=== PATIENT | female | born 1985 | race Caucasian/White ===

== ENCOUNTER 2021-11-13 10:09 | Outpatient (REF) | payer MEDICAID, SELFPAY ==
[2021-11-13 10:48] LABS: MANUAL DIFF FLAG NO
[2021-11-13 10:59] LABS: Basophils Percent Auto 0.2 % (0-2); Eosinophils Absolute Auto 0.2 X10*3/uL (0.0-0.4); Eosinophils Percent Auto 1.7 % (0-4); Hemoglobin 13.7 g/dl (12.0-16.0); Imm Gran Abs Auto 0.04 X10*3/uL (0.00-0.03); Imm Gran Pct Auto 0.4 % (0.0-0.4); Lymphocytes Percent Auto 29.4 % (20-40); Mean Corpuscular HGB Conc 33.4 g/dl (31.0-35.0); Mean Corpuscular Hemoglobin 31.4 pg (27.0-33.0); Mean Corpuscular Volume 93.8 fL (80.0-98.0); Mean Platelet Volume 9.5 fL (9.4-12.3); Monocytes Absolute Auto 0.5 X10*3/uL (0.1-1.2); Neutrophils Absolute Auto 6.5 x10*3/uL (2.0-8.3); Neutrophils Percent Auto 63.3 % (45-73); Platelet Count 308 X10*3/uL (160-400); Red Blood Count 4.37 X10*6/uL (4.20-5.50); White Blood Count 10.3 X10*3/uL (4.8-10.8)
[2021-11-13 11:50] LABS: Thyroid Stimulating Hormone 0.72 uIU/mL (0.32-4.0)
[2021-11-13 11:51] LABS: Alanine Aminotransferase 25 U/L (0-31); Albumin Level 4.1 g/dL (3.5-5.0); Alkaline Phosphatase 81 U/L (39-117); Anion Gap 13 (12-20); Aspartate Amino Transferase 18 U/L (5-31); Bilirubin Total 0.2 mg/dL (0.0-1.0); Blood Urea Nitrogen 7 mg/dL (9-16); Calcium 9.2 mg/dL (8.4-10.2); Carbon Dioxide 22 mmol/L (22-29); Chloride 106 mmol/L (96-108); Cholesterol 179 mg/dL; Estimated Glomerular Filt Rate > 60; Glucose Random 107 mg/dL (60-115); HDL Cholesterol 40 mg/dL; LDL Cholesterol Calculated 92 mg/dl; Sodium 137 mmol/L (135-145); Total Protein 7.2 g/dL (6.5-8.0); Triglycerides 239 mg/dL
[2021-11-13 11:59] LABS: Creatinine Urine 265.28 mg/dL; Total Protein Urine Random 20 mg/dL (<12)
== END 2021-11-13 10:10 | disposition home or self-care (01) ==
LOC: HO.LAB 10:09
PROVIDERS: PCP Internal Medicine; Visit Provider Internal Medicine
DX: Z00.01 Encounter for general adult medical examination with abnormal findings (principal); Z11.3 Encounter for screening for infections with a predominantly sexual mode of transmission; G57.12 Meralgia paresthetica, left lower limb; I10 Essential (primary) hypertension; Z72.0 Tobacco use
CPT/HCPCS: 36415; 80053; 80061; 84156; 84443; 85025

== ENCOUNTER 2023-02-05 12:19 | Outpatient (REF) | payer MEDICAID, SELFPAY ==
[2023-02-05 12:41] LABS: MANUAL DIFF FLAG NO
[2023-02-05 12:57] LABS: Basophils Percent Auto 0.3 % (0-2); Eosinophils Absolute Auto 0.3 X10*3/uL (0.0-0.4); Hematocrit 38.1 % (37.0-47.0); Hemoglobin 13.1 g/dl (12.0-16.0); Imm Gran Abs Auto 0.03 X10*3/uL (0.00-0.03); Imm Gran Pct Auto 0.3 % (0.0-0.4); Lymphocytes Absolute Auto 3.4 X10*3/uL (1.2-4.9); Lymphocytes Percent Auto 35.9 % (20-40); Mean Corpuscular HGB Conc 34.4 g/dl (31.0-35.0); Mean Corpuscular Volume 90.3 fL (80.0-98.0); Mean Platelet Volume 9.5 fL (9.4-12.3); Monocytes Absolute Auto 0.6 X10*3/uL (0.1-1.2); Monocytes Percent Auto 6.1 % (2-11); Neutrophils Absolute Auto 5.2 x10*3/uL (2.0-8.3); Neutrophils Percent Auto 54.4 % (45-73); Platelet Count 293 X10*3/uL (160-400); Red Blood Count 4.22 X10*6/uL (4.20-5.50); Red Cell Distribution Width 11.9 % (11.0-16.0); White Blood Count 9.5 X10*3/uL (4.8-10.8)
[2023-02-05 13:39] LABS: Alanine Aminotransferase 27 U/L (0-31); Albumin Level 4.2 g/dL (3.5-5.0); Alkaline Phosphatase 75 U/L (39-117); Anion Gap 12 (12-20); Aspartate Amino Transferase 23 U/L (5-31); Bilirubin Total 0.7 mg/dL (0.0-1.0); Blood Urea Nitrogen 8 mg/dL (9-16); Calcium 9.1 mg/dL (8.4-10.2); Carbon Dioxide 23 mmol/L (22-29); Chloride 106 mmol/L (96-108); Cholesterol 214 mg/dL; Estimated Glomerular Filt Rate > 60; Glucose Random 105 mg/dL (60-115); HDL Cholesterol 55 mg/dL; LDL Cholesterol Calculated 129 mg/dl; Potassium 3.7 mmol/L (3.3-5.1); Sodium 137 mmol/L (135-145); Total Protein 7.9 g/dL (6.5-8.0); Triglycerides 150 mg/dL
[2023-02-05 13:47] LABS: Thyroid Stimulating Hormone 0.47 uIU/mL (0.32-4.0)
[2023-02-05 15:16] LABS: Creatinine Urine 148.64 mg/dL; Protein/Creatinine Ratio, Ur 0.15 (<0.2); Total Protein Urine Random 22 mg/dL (<12)
== END 2023-02-05 12:20 | disposition home or self-care (01) ==
LOC: HO.LAB 12:19
PROVIDERS: PCP Internal Medicine; Visit Provider Internal Medicine
DX: Z00.00 Encounter for general adult medical examination without abnormal findings (principal); E78.2 Mixed hyperlipidemia; R80.8 Other proteinuria; I10 Essential (primary) hypertension
CPT/HCPCS: 36415; 80053; 80061; 84156; 84443; 85025

== ENCOUNTER 2023-11-25 11:24 | Outpatient (REF) | payer MEDICAID, SELFPAY ==
[2023-11-25 11:47] LABS: MANUAL DIFF FLAG NO
[2023-11-25 12:21] LABS: Basophils Percent Auto 0.3 % (0-2); Eosinophils Absolute Auto 0.2 X10*3/uL (0.0-0.4); Eosinophils Percent Auto 3.2 % (0-4); Hemoglobin 9.8 g/dl (12.0-16.0); Imm Gran Abs Auto 0.03 X10*3/uL (0.00-0.03); Imm Gran Pct Auto 0.4 % (0.0-0.4); Lymphocytes Absolute Auto 2.5 X10*3/uL (1.2-4.9); Lymphocytes Percent Auto 35.1 % (20-40); Mean Corpuscular HGB Conc 31.6 g/dl (31.0-35.0); Mean Corpuscular Hemoglobin 27.2 pg (27.0-33.0); Mean Corpuscular Volume 86.1 fL (80.0-98.0); Mean Platelet Volume 9.2 fL (9.4-12.3); Monocytes Absolute Auto 0.5 X10*3/uL (0.1-1.2); Monocytes Percent Auto 6.6 % (2-11); Neutrophils Absolute Auto 3.9 x10*3/uL (2.0-8.3); Neutrophils Percent Auto 54.4 % (45-73); Platelet Count 342 X10*3/uL (160-400); Red Cell Distribution Width 13.2 % (11.0-16.0); White Blood Count 7.2 X10*3/uL (4.8-10.8)
[2023-11-25 12:51] LABS: Alanine Aminotransferase 26 U/L (0-31); Albumin Level 3.9 g/dL (3.5-5.0); Alkaline Phosphatase 67 U/L (39-117); Anion Gap 11 (12-20); Aspartate Amino Transferase 22 U/L (5-31); Bilirubin Total 0.3 mg/dL (0.0-1.0); Blood Urea Nitrogen 9 mg/dL (9-16); Calcium 9.2 mg/dL (8.4-10.2); Carbon Dioxide 23 mmol/L (22-29); Chloride 107 mmol/L (96-108); Estimated Glomerular Filt Rate > 60; Glucose Random 106 mg/dL (60-115); Potassium 3.3 mmol/L (3.3-5.1); Sodium 138 mmol/L (135-145); Total Protein 7.2 g/dL (6.5-8.0)
[2023-11-25 13:10] LABS: Ferritin 12 ng/mL (10-122); Free T4 (Free Thyroxine) 1.09 ng/dL (0.71-1.85); Thyroid Stimulating Hormone 0.41 uIU/mL (0.32-4.0)
[2023-11-27 01:18] LABS: Triiodothyronine T3 Free 3.7 pg/mL (2.3-4.2)
== END 2023-11-25 11:25 | disposition home or self-care (01) ==
LOC: HO.LAB 11:24
PROVIDERS: PCP Internal Medicine; Visit Provider Internal Medicine
DX: Z00.01 Encounter for general adult medical examination with abnormal findings (principal); N92.0 Excessive and frequent menstruation with regular cycle; F32.9 Major depressive disorder, single episode, unspecified; D50.0 Iron deficiency anemia secondary to blood loss (chronic)
CPT/HCPCS: 36415; 80053; 82728; 84439; 84443; 84481; 85025

== ENCOUNTER 2024-01-21 12:01 | Outpatient (REF) | payer MEDICAID, SELFPAY | END 2024-01-21 12:02 | disposition home or self-care (01) | LOC: HO.LNP 12:01 | PROVIDERS: PCP Internal Medicine; Visit Provider Obstetrics & Gynecology | DX: Z32.02 Encounter for pregnancy test, result negative (principal); N93.9 Abnormal uterine and vaginal bleeding, unspecified | CPT/HCPCS: 36415; 81025; 84146; 84443; 84702; 85027; 87491; 87591; 87624; 87625; 88175; 99202 ==

== ENCOUNTER 2024-01-21 12:01 | Outpatient (AMB) | payer MEDICAID, SELFPAY ==
--- NOTE | 2024-01-21 12:01 | MHC.OFFVIS ---
Vital Signs 01/21/24 12:06 Height 5 ft 2 in Weight 180 lb BMI 32.9 BP 116/64 Intake Visit Reasons: New patient Menorrhagia Manager [place] Required: No Information Interpreted: non-clinical & clinical Sonar Subsystem Equipment Operator: Sonar Subsystem Equipment Operator Present (Yaz MARCUS) Accompanied by: Self / Same As Patient Allergies No Known Allergies Allergy (Unverified 01/21/24 12:08) Is last menstrual period known: Yes Last menstrual period: 01/06/24 HPI Comments Details: The patient is presenting c/o irregular bleeding associated with passage of blood clots and abdominal cramping. it started few months ago and is getting worse no other associated symptoms. Last co testing was many years ago [facility] Medical History Anemia Family History Maternal Aunt Ovarian cancer Maternal Grandmother Colon cancer Brother Hyperthyroidism Social History Household Members: Spouse and Children Housing: House Alcohol intake: current Alcohol type: wine and hard liquor Comment: on weekends Patient Tobacco Use Status: Former Tobacco user Tobacco use type: Cigarette e-Cigarette/Vaping Use: Currently Using Frequency of e-Cigarette/Vaping Use: 5 times per day Use of substances other than those prescribed or required for medical reasons: No Current occupational status: unemployed Sexually active: Yes Sexual orientation: Straight/Heterosexual Gender identity: Female Female Reproductive History Menstrual Age of Menarche: 13 Duration of menses: 8-10 days Date of last menstrual period: 01/06/24 Total pregnancies: 3 Full term: 2 Number of Living Children: 2 Ab spontaneous: 1 Review of Systems Const All systems reviewed & are unremarkable except as noted in HPI and below Card Reports as per HPI Resp Reports as per HPI GI Reports as per HPI and Reports no additional complaints Reports as per HPI Physical Exam Vital Signs: Last Vital Signs BP 116/64 01/21/24 12:06 BMI result Body Mass Index 32.9 Const General: cooperative, healthy appearing and comfortable Chest Chest palpation & inspection: normal inspection of the chest and normal palpation of entire chest wall Breast/axilla inspection: normal inspection of the breasts and normal inspection of the axillae Breast/axilla palpation: normal palpation of the breasts, normal palpation of the axillae and no axillary lymphadenopathy Resp Effort & Inspection: normal respiratory effort Auscultation: clear to auscultation bilaterally Percussion: percussion normal Cardio Palpation: normal PMI Rate: regular rate Rhythm: regular rhythm Heart sounds: no murmurs and no rubs Peripheral pulses: Peripheral pulses 2+ throughout GI Inspection: Yes normal to inspection Palpation (GI): Soft to palpation, nontender, no guarding, not rigid and No hepatosplenomegaly present Percussion: Yes normal to percussion Auscultation: normal bowel sounds Rectal Exam - Female: deferred General: Yes bladder normal to palpation External Female Exam: No lesion Speculum Exam - Vagina: normal appearance of the vagina, normal palpation, normal vaginal discharge and not erythematous Speculum Exam - Cervix: normal appearance of the cervix and normal palpation Bimanual exam- vagina & uterus: normal bimanual exam, normal palpation, uterine size normal, bladder normal to palpation, consistency normal and normal palpation Bimanual Exam- Adnexa, other: normal adnexae, no masses and no tenderness Results AMB Test Urine AMB Test Urine Negative Last Edit by Yaz Hoff CMA on 01/21/24 12:17 Assessment & Plan Assessment & Plan (1) Abnormal uterine bleeding (AUB): Code(s): N93.9 - Abnormal uterine and vaginal bleeding, unspecified Category: Medical Plan: Urine test done in the office was negative. Co testing done, GC and chlamydia taken CBC, TSH, prolactin, HCG, and pelvic ultrasound ordered. Discussed with the patient the different causes of abnormal bleeding including thyroid disorders, uterine and ovarian pathology, endometrial hyperplasia, carcinoma and other potential causes. Discussed with the patient the work up including CBC (to r/o anemia), TSH, prolactin, pelvic Ultrasound, endometrial biopsy to r/o endometrial pathology. All questions answered and the patient verbalized understanding. Instructed the patient to schedule an appointment for an endometrial biopsy in 2 weeks. Orders: Orders AMB HCG Urine Test Today Z32.02 - Encounter for test, result negative TSH reflex Free T4 Today N93.9 - Abnormal uterine and vaginal bleeding, unspecified US pelvic and transvaginal Today N93.9 - Abnormal uterine and vaginal bleeding, unspecified Complete Blood Count no Diff Today N93.9 - Abnormal uterine and vaginal bleeding, unspecified HCG Quantitative Today N93.9 - Abnormal uterine and vaginal bleeding, unspecified Prolactin Today N93.9 - Abnormal uterine and vaginal bleeding, unspecified Coding Level of Care Code New Pt Level 3 (00568) Diagnoses Abnormal uterine bleeding (AUB) N93.9
[2024-01-21 12:06] VITALS: BP 116/64; BMI 32.9
== END 2024-01-21 12:28 | disposition home or self-care (01) ==
PROVIDERS: PCP Internal Medicine; Visit Provider Obstetrics & Gynecology
DX: N93.9 Abnormal uterine and vaginal bleeding, unspecified (principal); Z32.02 Encounter for pregnancy test, result negative
CPT/HCPCS: 99203

== ENCOUNTER 2024-01-21 12:33 | Outpatient (REF) | payer MEDICAID, SELFPAY ==
[2024-01-21 13:53] LABS: Hematocrit 32.5 % (37.0-47.0); Hemoglobin 10.1 g/dl (12.0-16.0); Mean Corpuscular HGB Conc 31.1 g/dl (31.0-35.0); Mean Corpuscular Hemoglobin 25.8 pg (27.0-33.0); Mean Corpuscular Volume 82.9 fL (80.0-98.0); Mean Platelet Volume 9.5 fL (9.4-12.3); Platelet Count 384 X10*3/uL (160-400); Red Blood Count 3.92 X10*6/uL (4.20-5.50); White Blood Count 6.9 X10*3/uL (4.8-10.8)
[2024-01-21 14:49] LABS: HCG Quantitative < 2 mIU/mL; TSH reflex Free T4 0.53 uIU/mL (0.32-4.0)
[2024-01-21 17:12] LABS: CT PCR NOT DETECTED (Not Detect.); NG PCR NOT DETECTED (Not Detect.)
[2024-01-22 08:48] LABS: Prolactin 9.8 ng/mL
[2024-01-24 03:08] LABS: HPV 16 RNA NOT DETECTED (NOT DETECTED); HPV mRNA E6/E7 Detected (Not Detected)
== END 2024-01-21 12:34 | disposition home or self-care (01) ==
LOC: HO.LAB 12:33
PROVIDERS: PCP Internal Medicine; Visit Provider Obstetrics & Gynecology
DX: N93.9 Abnormal uterine and vaginal bleeding, unspecified (principal)
CPT/HCPCS: 36415; 84146; 84443; 84702; 85027; 87491; 87591; 87624; 87625; 88175

== ENCOUNTER 2024-01-24 13:16 | Outpatient (REF) | payer MEDICAID, SELFPAY ==
--- NOTE | ~2024-01-24 | US_ITS ---
EXAMINATION: US PELVIS CLINICAL INFORMATION: Abnormal uterine bleeding, last menstrual period 2 weeks ago. COMPARISON: None available. TECHNIQUE: Ultrasound of the pelvis is performed using both transabdominal and transvaginal transducers along with Doppler. Transvaginal imaging is performed due to inadequate visualization transabdominally. FINDINGS: The uterus is anteverted and measures 13.4 x 8.5 x 7.4 cm. 6.8 x 7.0 x 7.2 cm mass within the uterus is somewhat difficult to characterize due to bowel gas and positioning, but likely represents a fibroid. Endometrium is poorly visualized. Imaged segment of endometrium with possible thickness of 8 mm, however, accuracy of endometrial measurements is substantially limited due to the large fibroid. No significant free fluid. Right ovary measures 3.3 x 3.4 x 2.3 cm, volume 13.6 mL. Left ovary measures 2.9 x 2.0 x 1.7 cm, volume 4.3 mL. Visualization of bilateral ovaries limited. US/US pelvic and transvaginal IMPRESSION: 1. 7.2 cm mass within the uterus is somewhat difficult to characterize due to bowel gas and positioning, but likely represents a fibroid. 2. Endometrium is poorly visualized. Imaged segment of endometrium with possible thickness of 8 mm, however, accuracy of endometrial measurements is substantially limited due to the large fibroid. 3. Visualization of bilateral ovaries limited.
== END 2024-01-24 13:17 | disposition home or self-care (01) ==
LOC: HO.US 13:16
PROVIDERS: PCP Internal Medicine; Visit Provider Obstetrics & Gynecology
DX: N93.9 Abnormal uterine and vaginal bleeding, unspecified (principal)
CPT/HCPCS: 76830; 76856

== ENCOUNTER 2025-02-10 18:57 | Emergency (ER) | payer MEDICAID, SELFPAY ==
[2025-02-10 19:10] VITALS: BP 164/91; PULSE 111; RESP 20; TEMP 36.7; O2SAT 100; BMI 32.6
--- NOTE | 2025-02-10 19:10 | ED.GENADULT ---
HPI - General Adult General Chief complaint: Vaginal Bleeding Stated complaint: panic attack, heavy period (anemic) Time Seen by Provider: 02/10/25 22:49 Source: patient Limitations: no limitations History of Present Illness ED Provider: Rebeka Argueta PA-C HPI narrative: 39-year-old female with a known abnormal uterine bleeding, iron deficiency anemia, presents with a heavy vaginal bleeding over the past 3 days. Patient states she has a her menstrual cycle, the bleeding has been very heavy over the past 3 days. Patient is soaking through a pad every hour, passing large clots at times. Patient states that she had a recent transvaginal ultrasound, and now she is pending a uterine biopsy; she has an appointment with Dr. Suarez in February. Related Data Home Medications ?Medication ?Instructions ?Recorded ?Confirmed ferrous sulfate 325 mg (65 mg 325 mg PO DAILY 01/21/24 02/11/25 iron) tablet Previous Rx's ?Medication ?Instructions ?Recorded medroxyprogesterone 10 mg tablet 10 mg PO DAILY #90 tabs 02/11/25 (Provera) Allergies Allergy/AdvReac Type Severity Reaction Status Date / Time No Known Allergies Allergy Verified 02/10/25 19:12 Review of Systems Review of Systems: Yes all other systems are reviewed and are negative Constitutional: Constitutional: Denies fatigue and Denies fever(s) Cardiovascular: Cardiovascular: Denies chest pain and Denies dyspnea Respiratory: Respiratory: Denies cough and Denies dyspnea Gastrointestinal: Gastrointestinal: Denies abdominal pain, Denies nausea and Denies vomiting Genitourinary: Genitourinary: Denies pelvic pain Endocrine: Endocrine: Denies fatigue PMF Past Medical History Attestation statement: The following information was validated with the patient. Medical History Anemia Family History Family History Maternal Aunt Ovarian cancer Maternal Grandmother Colon cancer Brother Hyperthyroidism Social History Social History Household Members: Spouse and Children Housing: House Alcohol intake: current Alcohol type: wine and hard liquor Comment: on weekends Patient Tobacco Use Status: Former Tobacco user Tobacco use type: Cigarette e-Cigarette/Vaping Use: Currently Using Current occupational status: unemployed Sexual orientation: Straight/Heterosexual Gender identity: Female Physical Exam ED Vital Signs: Vital Signs - 24 hr 02/10/25 21:38 02/11/25 01:00 02/11/25 04:18 Temperature 98.6 F 98.5 F 98.4 F Pulse Rate 99 100 86 Respiratory Rate 16 16 16 Blood Pressure 168/93 H 149/85 H 168/99 H Pulse Oximetry 99 98 99 Oxygen Delivery Method Room Air Room Air Room Air 02/11/25 06:21 02/11/25 10:01 02/11/25 10:17 Temperature 98.3 F 98.4 F 98.6 F Pulse Rate 81 99 90 Respiratory Rate 18 16 16 Blood Pressure 156/93 H 155/97 H 165/99 H Pulse Oximetry 98 Oxygen Delivery Method Room Air 02/11/25 11:08 02/11/25 12:22 02/11/25 12:25 Temperature 98.3 F 98.3 F 98.4 F Pulse Rate 89 85 87 Respiratory Rate 16 16 18 Blood Pressure 183/106 H 165/100 H 165/100 H Pulse Oximetry 99 98 Oxygen Delivery Method Room Air Room Air 02/11/25 13:22 Temperature 98.4 F Pulse Rate 87 Respiratory Rate 18 Blood Pressure 165/100 H Pulse Oximetry 98 Oxygen Delivery Method Room Air BMI result Body Mass Index 32.6 Const Other: Alert well-appearing Orientation/consciousness: patient oriented x3 Resp Effort & Inspection: normal respiratory effort Cardio Other: Normal peripheral perfusion Other: Normal external genitalia, dark blood noted in vaginal canal, dark blood oozing from os, 2 small clots noted Skin Other: Warm dry no rash Neuro General: patient oriented x3, gait normal, no focal motor deficits and CN's II-XI intact bilaterally Psych Other: Cooperative Course Course Course Narrative: RME, this is a rapid medical exam performed by Durga Puga please refer to primary provider for complete H&P- 39 year old female presents for evaluation of anxiety. She reports she is on day 3 of a heavy menstrual cycle but feels anxious, nervous, and shortness of breath. She also endorses tunnel vision. Plan for labs, EKG Reevaluation(s) Reevaluation #1: Time: 02:36 Date: 02/11/25 Provider: JUAN Gray Patient in physician observation for medical needs . No acute events reported overnight.? No current issues or complaints. VS stable. Patient is pending repeat labs and [employer] [employer] consult per Dr. Suarez. Repeat labs ordered for 500 am. If the patient develops new onset heavy vaginal bleeding, and/or becomes unstable, we are to reach out to Dr. Suarez ROBEL. Will continue to monitor. Reevaluation #2: DR. Haddad's progress note: 02/11/2025: 11 15. Patient is receiving a 1 unit of RBCs in the ED, had a full evaluation by OBGYN in the ED patient is already prescribed Provera by Dr. Suarez, and scheduled to see him as an outpatient, blood pressure is running 183/106 has been high since patient in the emergency department, patient is getting emotional and anxious because she may have hysterectomy in the future, patient also is following with her PCP for elevated blood pressure. Will give the patient hydroxyzine for anxiety. Keep monitoring blood pressure would be too early to intervene at this stage patient has a right follow-up with her PCP to establish diagnosis of blood pressure. Patient received almost half of the RBCs pack, no allergic reaction, no itching, no rash, no SOB, no CP, no headache. 13;16: Blood pressure now is 165/100 patient is still asymptomatic finished her blood transfusion, will discharge. Consultations Consultation #1: per Dr. Suarez........ He recommends : Provera 10 mg po qd x90 days to be started now Will perform emb in am in the office Keep in ER and Observe till am and repeat h&h in am If lower in am will need transfusion otherwise will see her in the office in am If bleeding is worked overnight please let me know Time: 23:51 Medications Administered Discontinued Medications Generic Name Dose Route Start Last Admin Trade Name Freq PRN Reason Stop Dose Admin Hydroxyzine HCl 25 mg 02/11/25 11:07 02/11/25 11:21 Hydroxyzine Hcl 25 Mg Tablet PO 02/11/25 11:08 25 mg ONCE ONE Administration Magnesium Sulfate 2 gm in 50 mls @ 150 mls/hr 02/10/25 22:49 02/10/25 23:24 Magnesium Sulfate/H2o IV 02/10/25 23:08 Infused ONCE ONE Infusion Magnesium Sulfate 2 gm in 50 mls @ 150 mls/hr 02/10/25 23:22 02/11/25 00:27 Magnesium Sulfate/H2o IV 02/10/25 23:41 Infused ONCE ONE Infusion Medroxyprogesterone Acetate 10 mg 02/11/25 00:14 02/11/25 00:52 Medroxyprogesterone Acetate 5 Mg Tablet PO 02/11/25 00:15 10 mg ONCE ONE Administration Morphine Sulfate 2 mg 02/11/25 08:51 02/11/25 09:49 Morphine Sulfate 2 Mg/Ml Cartridge IVPUSH 02/11/25 08:52 2 mg ONCE ONE Administration Protocol Ondansetron HCl 4 mg 02/11/25 08:51 02/11/25 09:50 Ondansetron Hcl 4 Mg/2 Ml Vial IVPUSH 02/11/25 08:52 4 mg ONCE ONE Administration Medical Decision Making Medical Decision Making MDM Narrative: 39-year-old female with a known abnormal uterine bleeding, iron deficiency anemia, presents with a heavy vaginal bleeding x 3 days. Patient states she has her menstrual cycle, the bleeding has been very heavy over the past 3 days. Patient is soaking through a pad every hour, passing large clots at times. Patient states that she had a recent transvaginal ultrasound, and now she is pending a uterine biopsy; she has an appointment with Dr. Suarez in February. Problem: Known abnormal uterine bleeding, iron deficiency anemia History: Per patient I have considered the following differential diagnoses: Endometrial cancer, fibroids, anemia, dysfunctional uterine bleed, ectopic Plan: Screening labs were obtained from triage, her anemia is stable, I will repeat her H&H. Perform pelvic exam, the patient has a has not had to change a pad in 4-1/2 hours. She just went to the bathroom, she has started to bleed again, she began to pass small clots as well. We will reach out to Dr. Suarez for further guidance. I have independently reviewed the following tests: Labs: No leukocytosis, stable anemia 9.4 and 28.6, repeat H&H 9.3 and 27.7, magnesium subtly low at 1.3, no additional electrolyte abnormalities, not , Transvaginal ultrasound from January 23: US/US pelvic and transvaginal IMPRESSION: 1. 7.2 cm mass within the uterus is somewhat difficult to characterize due to bowel gas and positioning, but likely represents a fibroid. 2. Endometrium is poorly visualized. Imaged segment of endometrium with possible thickness of 8 mm, however, accuracy of endometrial measurements is substantially limited due to the large fibroid. I received sign-out from my colleague JUAN Argueta H&H was repeated, dropped 1 unit, no 8.2. Overnight, patient passed a few blood clots but no active bleed. I discussed the patient with Dr. [facility] from [facility]. Patient other received 10 mg of Provera Patient will need 1 unit of blood Patient will be discharged with a prescription of Provera 10 mg daily 90 tablets patient has been instructed to follow-up with in his office I discussed with the patient the risks versus benefits of a blood transfusion, patient agreeable to proceed, patient has signed a consent. After the transfusion, patient may be discharged home if she tolerates it well. Sign-out given to my colleague Dr. Haddad Lab Data 02/11/25 05:27 02/10/25 19:21 Labs: Lab Results 02/10/25 02/10/25 02/10/25 Range/Units 19:21 19:35 22:58 WBC 11.7 H (4.8-10.8) X10*3/uL RBC 3.37 L (4.20-5.50) X10*6/uL Hgb 9.4 L 9.3 L (12.0-16.0) g/dl Hct 28.6 L 27.7 L (37.0-47.0) % MCV 84.9 (80.0-98.0) fL MCH 27.9 (27.0-33.0) pg MCHC 32.9 (31.0-35.0) g/dl RDW 12.7 (11.0-16.0) % Plt Count 309 (160-400) X10*3/uL MPV 9.0 L (9.4-12.3) fL Immature Gran % (Auto) 0.4 (0.0-0.4) % Neut % (Auto) 63.6 (45-73) % Lymph % (Auto) 28.3 (20-40) % [place] % (Auto) 6.2 (2-11) % Eos % (Auto) 1.2 (0-4) % Baso % (Auto) 0.3 (0-2) % Lymph # (Auto) 3.3 (1.2-4.9) X10*3/uL M[place]enzie # (Auto) 0.7 (0.1-1.2) X10*3/uL Eos # (Auto) 0.1 (0.0-0.4) X10*3/uL Baso # (Auto) 0.0 (0.0-0.2) X10*3/uL Abs Immat Gran (auto) 0.05 H (0.00-0.03) X10*3/uL Absolute Neuts (auto) 7.5 (2.0-8.3) x10*3/uL Absolute Nucleated RBC 0.000 (0.0-0.012) X10*3/uL Nucleated RBC % (auto) 0.0 (0.0-0.2) /100WBC Sodium 138 (135-145) mmol/L Potassium 3.3 (3.3-5.1) mmol/L Chloride 106 (96-108) mmol/L Carbon Dioxide 17 L (22-29) mmol/L Anion Gap 18 (12-20) BUN 9 (9-16) mg/dL Creatinine 0.75 (0.5-1.4) mg/dL Estim Creat Clear Calc 100.0 Estimated GFR > 60 Random Glucose 115 (60-115) mg/dL Calcium 8.2 L D (8.4-10.2) mg/dL Magnesium 1.3 L* (1.6-2.6) mg/dL Total Bilirubin 0.2 (0.0-1.0) mg/dL AST 60 H (5-31) U/L ALT 56 H (0-31) U/L Alkaline Phosphatase 76 (39-117) U/L Total Protein 7.2 (6.5-8.0) g/dL Albumin 4.0 (3.5-5.0) g/dL TSH 0.88 (0.32-4.0) uIU/mL Beta HCG, Quant < 2 mIU/mL Urine Color Yellow Urine Appearance Clear Urine pH 6.0 (5.0-9.0) Ur Specific [place] 1.010 (1.005-1.025) Urine Protein Trace (Neg-Trace) mg/dL Urine Glucose (UA) Negative (Negative) mg/dL Urine Ketones Negative (Negative) mg/dL Urine Blood Large (3+) H (Negative) Urine Nitrite Negative (Negative) Ur Leukocyte Esterase Negative (Negative) Urine RBC >20 H (0-2) /HPF Urine WBC 0-5 (0-5) /HPF Ur Squamous Epith Cells 0-2 (0-2) /HPF Urine Bacteria None Seen (None Seen) Hyaline Casts 0-2 (0-2) /LPF Blood Type Antibody Screen Crossmatch 02/11/25 02/11/25 Range/Units 05:27 08:29 WBC (4.8-10.8) X10*3/uL RBC (4.20-5.50) X10*6/uL Hgb 8.2 L (12.0-16.0) g/dl Hct 24.7 L (37.0-47.0) % MCV (80.0-98.0) fL MCH (27.0-33.0) pg MCHC (31.0-35.0) g/dl RDW (11.0-16.0) % Plt Count (160-400) X10*3/uL MPV (9.4-12.3) fL Immature Gran % (Auto) (0.0-0.4) % Neut % (Auto) (45-73) % Lymph % (Auto) (20-40) % Mckenzie % (Auto) (2-11) % Eos % (Auto) (0-4) % Baso % (Auto) (0-2) % Lymph # (Auto) (1.2-4.9) X10*3/uL [place] # (Auto) (0.1-1.2) X10*3/uL Eos # (Auto) (0.0-0.4) X10*3/uL Baso # (Auto) (0.0-0.2) X10*3/uL Abs Immat Gran (auto) (0.00-0.03) X10*3/uL Absolute Neuts (auto) (2.0-8.3) x10*3/uL Absolute Nucleated RBC (0.0-0.012) X10*3/uL Nucleated RBC % (auto) (0.0-0.2) /100WBC Sodium (135-145) mmol/L Potassium (3.3-5.1) mmol/L Chloride (96-108) mmol/L Carbon Dioxide (22-29) mmol/L Anion Gap (12-20) BUN (9-16) mg/dL Creatinine (0.5-1.4) mg/dL Estim Creat Clear Calc Estimated GFR Random Glucose (60-115) mg/dL Calcium (8.4-10.2) mg/dL Magnesium 2.2 (1.6-2.6) mg/dL Total Bilirubin (0.0-1.0) mg/dL AST (5-31) U/L ALT (0-31) U/L Alkaline Phosphatase (39-117) U/L Total Protein (6.5-8.0) g/dL Albumin (3.5-5.0) g/dL TSH (0.32-4.0) uIU/mL Beta HCG, Quant mIU/mL Urine Color Urine Appearance Urine pH (5.0-9.0) Ur Specific [place] (1.005-1.025) Urine Protein (Neg-Trace) mg/dL Urine Glucose (UA) (Negative) mg/dL Urine Ketones (Negative) mg/dL Urine Blood (Negative) Urine Nitrite (Negative) Ur Leukocyte Esterase (Negative) Urine RBC (0-2) /HPF Urine WBC (0-5) /HPF Ur Squamous Epith Cells (0-2) /HPF Urine Bacteria (None Seen) Hyaline Casts (0-2) /LPF Blood Type O Positive Antibody Screen NEGATIVE Crossmatch See Detail Critical Care Time Critical Care Time Critical Care Time: Yes Total Critical Care Time: 75 Attestation: I have personally provided critical care time. Time includes review of lab data, radiology results, discussion with consultants, and monitoring for potential decompensation. Intervention performed as documented. Discharge Plan Discharge Clinical Impression: Abnormal uterine bleeding (AUB) Patient Disposition: Home, Self-Care Instructions: Abnormal (Dysfunctional) Uterine Bleeding (ED) Additional Instructions: Per Dr. Suarez, you should stay on the Provera daily for the next 3 months. Prescriptions: New medroxyprogesterone [Provera] 10 mg tablet 10 mg PO DAILY Qty: 90 0RF No Action ferrous sulfate 325 mg (65 mg iron) tablet 325 mg PO DAILY Referrals: Elias Suarez MD [Physician, TRANSITIONAL CARE LIAISON] Stand Alone Forms: Work/School Release Interventions: ED Discharge Assessment Last Done: 02/11/25 13:22 Discharge Date/Time: 02/11/25 13:24 Print Language: Yoruba
--- NOTE | 2025-02-10 19:11 | ECG_ITS ---
Test Reason : SOB Blood Pressure : */* mmHG Vent. Rate : 117 BPM Atrial Rate : 117 BPM P-R Int : 166 ms QRS Dur : 84 ms QT Int : 318 ms P-R-T Axes : 40 54 37 degrees QTcB Int : 443 ms Sinus tachycardia Nonspecific ST abnormality Abnormal ECG No previous ECGs available Referred By: Alberto Puga Electronically Signed By: EUSEBIA BLUNT MD
[2025-02-10 19:25] LABS: MANUAL DIFF FLAG NO
[2025-02-10 19:26] LABS: Hematocrit 28.6 % (37.0-47.0); Hemoglobin 9.4 g/dl (12.0-16.0); Imm Gran Abs Auto 0.05 X10*3/uL (0.00-0.03); Imm Gran Pct Auto 0.4 % (0.0-0.4); Lymphocytes Absolute Auto 3.3 X10*3/uL (1.2-4.9); Mean Corpuscular HGB Conc 32.9 g/dl (31.0-35.0); Mean Corpuscular Hemoglobin 27.9 pg (27.0-33.0); Mean Corpuscular Volume 84.9 fL (80.0-98.0); NRBC Abs Auto 0.000 X10*3/uL (0.0-0.012); NRBC Pct Auto 0.0 /100WBC (0.0-0.2); Platelet Count 309 X10*3/uL (160-400); Red Blood Count 3.37 X10*6/uL (4.20-5.50); White Blood Count 11.7 X10*3/uL (4.8-10.8)
[2025-02-10 19:48] LABS: Alanine Aminotransferase 56 U/L (0-31); Albumin Level 4.0 g/dL (3.5-5.0); Alkaline Phosphatase 76 U/L (39-117); Anion Gap 18 (12-20); Aspartate Amino Transferase 60 U/L (5-31); Blood Urea Nitrogen 9 mg/dL (9-16); Calcium 8.2 mg/dL (8.4-10.2); Carbon Dioxide 17 mmol/L (22-29); Chloride 106 mmol/L (96-108); Creatinine Clr Calc Pharmacy 100.0; Estimated Glomerular Filt Rate > 60; Magnesium 1.3 mg/dL (1.6-2.6); Potassium 3.3 mmol/L (3.3-5.1); Sodium 138 mmol/L (135-145); Total Protein 7.2 g/dL (6.5-8.0)
[2025-02-10 19:49] LABS: Appearance Urine Clear; Glucose Urine UA Negative (Negative); PH 6.0 (5.0-9.0); Specific Gravity - Urine 1.010 (1.005-1.025); UMIC TRIGGER UACC YES
--- OUTSIDE RECORDS SUMMARY | 2025-02-10 21:05 | XMS_ITS | Clinical Summary ---
Author Organization [facility] Address [address] [facility] [address] [place] [address] Phone Care Team Providers Care Yard Jacker Name Role Phone Monica Agosto MD Primary Care Provider Social History Tobacco Use Types Packs/Day Years Used Date Smoking Tobacco: Never Assessed Comments Unknown Sex and Gender Information Value Date Recorded Sex Assigned at Not on file Legal Sex Female 3:00 PM EDT Gender Identity Not on file Sexual Orientation Not on file Plan of Treatment Health Maintenance Due Date Last Done Comments Hepatitis B Vaccine (1 of 3 - 19+ 3-dose series) 2005 Influenza Vaccine (#1) 2025 Pneumococcal Vaccine: Peds ( 0 to 5 Years) and At-Risk Patients (6 to 49 Years) Aged Out No longer eligible b ased on patient's age to complete this topic [place] Care Teams Yard Jacker Relationship Specialty Start Date End Date Monica Agosto MD [address] [place] [address] PCP - General Internal Medicine 12/11/21
[2025-02-10 21:38] VITALS: BP 168/93; PULSE 99; RESP 16; TEMP 37; O2SAT 99
--- NOTE | 2025-02-10 22:28 | PC.NURSE ---
pt a&ox4, respirations even and unlabored. pt reports x3 days of vaginal bleeding with large clots, denies any abdominal pain. pt also reports intermittent panic attacks which she has never had before. at this time, pt resting in stretcher, no acute distress noted but pt reports she is having anxiety. pt awaiting ed doc
[2025-02-10] MEDS: Magnesium Sulfate/H2O 2 GM/50 ML PIGGYBACK IV ×2 (22:54→23:26)
[2025-02-10 23:03] LABS: Hematocrit 27.7 % (37.0-47.0); Hemoglobin 9.3 g/dl (12.0-16.0)
--- NOTE | 2025-02-10 23:27 | PC.NURSE ---
pt returned from bathroom at this time, reports one small blood clot at this time, denies any heavy bleeding
[2025-02-11] VITALS (9 sets, daily range): BP systolic 149–183; BP diastolic 85–106; PULSE 81–100; RESP 16–18; TEMP 36.8–37; O2SAT 98–99
--- NOTE | 2025-02-11 00:05 | P.CONOB_ITS ---
PARK MAINTENANCE TECHNICIAN - CN: HPI Data of Consult Consult date: 02/11/25 Primary Care Provider: Monica Agosto MD Consult Narrative Narrative: I was consulted on Kenya Cunningham who is a 39 year old female presenting to the emergency room with history of heavy vaginal bleeding associated specialist with blood clots and pelvic cramping H&H at 19:21 was 9.4/29.6 H&H repeated at 22:58 dropped to 9.3/27.7 HCG less than 2 Last co testing was negative/HPV positive, colpo biopsy scheduled but the patient canceled her follow-up appointment because her insurance was inactive 02/14 Pelvic ultrasound done recently showed the following: The uterus is anteverted and measures 13.4 x 8.5 x 7.4 cm. 6.8 x 7.0 x 7.2 cm mass within the uterus is somewhat difficult to characterize due to bowel gas and positioning, but likely represents a fibroid. Endometrium is poorly visualized. Imaged segment of endometrium with possible thickness of 8 mm, however, accuracy of endometrial measurements is substantially limited due to the large fibroid. No significant free fluid. Right ovary measures 3.3 x 3.4 x 2.3 cm, volume 13.6 mL. Left ovary measures 2.9 x 2.0 x 1.7 cm, volume 4.3 mL. Visualization of bilateral ovaries limited The patient is states that her bleeding is beginning to subside cc:: CC: OB [facility] Past Medical History Medical History Anemia Family History Family History Maternal Aunt Ovarian cancer Maternal Grandmother Colon cancer Brother Hyperthyroidism Social History Social History Household Members: Spouse and Children Housing: House Alcohol intake: current Alcohol type: wine and hard liquor Comment: on weekends Patient Tobacco Use Status: Former Tobacco user Tobacco use type: Cigarette Smoked in Last 30 Days: No e-Cigarette/Vaping Use: Currently Using Use of substances other than those prescribed or required for medical reasons: No Advance Directives: No Advance Directives Information Provided: Yes Patient : No Current occupational status: unemployed Sexual orientation: Straight/Heterosexual Gender identity: Female Meds Allergies Allergy/AdvReac Type Severity Reaction Status Date / Time No Known Allergies Allergy Verified 02/10/25 19:12 Home Medications ?Medication ?Instructions ?Recorded ?Confirmed ?Last Taken ?Type ferrous sulfate 325 mg (65 mg 325 mg PO DAILY 01/21/24 Unknown History iron) tablet PARK MAINTENANCE TECHNICIAN Physical Exam Vitals Vital signs: Temp Pulse Resp BP Pulse Ox O2 Del Method 98.6 F 99 16 168/93 H 99 Room Air 02/10/25 21:38 02/10/25 21:38 02/10/25 21:38 02/10/25 21:38 02/10/25 21:38 02/10/25 21:38 BMI result Body Mass Index 32.6 Female Genitalia (Pelvic) Bladder/Urethra: Normal meatus Vulva: No lesions Vagina: Nontender Cervix: Grossly normal Adnexa/Parametria: Adnexal Tenderness: None, Adnexal Mass: None, Parametrial Tenderness: None and Parametrial Mass: None Additional Comments: No evidence of active vaginal bleeding PARK MAINTENANCE TECHNICIAN - Results Labs 02/11/25 05:27 02/10/25 19:21 Labs: Short CBC 02/10/25 02/10/25 Range/Units 19:21 22:58 WBC 11.7 H (4.8-10.8) X10*3/uL Hgb 9.4 L 9.3 L (12.0-16.0) g/dl Hct 28.6 L 27.7 L (37.0-47.0) % Plt Count 309 (160-400) X10*3/uL BMP 02/10/25 19:21 Sodium 138 Potassium 3.3 Chloride 106 Carbon Dioxide 17 L BUN 9 Creatinine 0.75 Calcium 8.2 L D Liver Function 02/10/25 Range/Units 19:21 Total Bilirubin 0.2 (0.0-1.0) mg/dL AST 60 H (5-31) U/L ALT 56 H (0-31) U/L Alkaline Phosphatase 76 (39-117) U/L Albumin 4.0 (3.5-5.0) g/dL Urine 02/10/25 Range/Units 19:35 Urine Color Yellow Urine Appearance Clear Urine pH 6.0 (5.0-9.0) Ur Specific [place] 1.010 (1.005-1.025) Urine Protein Trace (Neg-Trace) mg/dL Urine Glucose (UA) Negative (Negative) mg/dL Assessment and Plan (1) Abnormal uterine bleeding (AUB): Status: Acute 12:04 Recommended the following to JUAN Gray in the emergency room: Start Provera 10 mg p.o. q.d.x 90 days. Observe overnight in the emergency room Repeat H&H in a.m. if significant lower transfuse with packed RBC otherwise will follow-up in the office in a.m. for EMB 08:00 the patient is doing well feels that bleeding has slowed down repeat H&H at 05:27 dropped to 8.2/24.7 Discussed with the patient the importance of EMB to rule out endometrial pathology include endometrial hyperplasia and/or malignancy, the patient agreed In addition, discussed with the patient the her last ultrasound was done a year ago needs repeat ultrasound on outpatient basis, ordered Last discussed with the patient her last co testing was negative/HPV positive, the indication for repeat co testing and colpo tanvir, the patient verbalized understanding Recommend: EMB done, see procedure note transfuse 1 unit of packed RBC Follow-up in 1 week in the office with repeat CBC Provera 10 mg p.o. q.d.x 90 days Will refer to [facility] minimally invasive baling machine operator hysterectomy Instructions given the patient to call or come back to emergency room in case of recurrence of vaginal bleeding I spent a total of 20 minutes reviewing the chart, communicating to the emergency room provider and documenting in the medical record. (2) Uterine myoma: Status: Acute Since ultrasound was done a year ago will repeat pelvic ultrasound outpatient basis Discussed with the patient the findings on pelvic ultrasound done a year ago & the risk of myosarcoma; in addition reviewed with the patient that malignancy and pre malignancy cannot be ruled out without hysterectomy for pathological evaluation ; furthermore, explained to the patient the limitation of pelvic ultrasound and endometrial biopsy in the setting. Discussed with the patient the typical symptoms that are caused by myomas including but not limited to pelvic pain, pressure symptoms, abnormal uterine bleeding. In addition discussed with the patient options of treatment for myomas including: Serial ultrasounds periodically to follow-up on the size of the myoma while targeting the treatment against fibroids related symptoms ( control pills, Mirena IUD, progesterone treatment, GnRH agonist/antagonist, uterine artery embolization or endometrial ablation) versus surgical treatment including hysterectomy or myomectomy. All pros and cons, risks and benefits of all options were discussed with the patient. The patient understands that delay in surgical treatment in case of myosarcoma can affect her prognosis, after further discussion, the patient decided to proceed with hysterectomy Discussed with the patient the different types of hysterectomies including, vaginal, laparoscopic assisted vaginal, robotic assisted laparoscopic,& abdominal with BSO. All pros, cons, r/b of each approach were discussed the patient including evidence that morbidity is less and recovery is shorter with minimally invasive approaches to hysterectomy. Discussed with the patient the lack of availability of the robot DaVinci robot and/or minimally invasive chemistry instructor specialist at [facility]. Will refer to [facility] minimally invasive baling machine operator surgery. Instructed the patient to call our office back in case a referral appointment is not scheduled, missed or canceled so that we will assist on rescheduling another appointment, the patient verbalized understanding agreed with the plan. (3) Cervical high risk HPV (human papillomavirus) test positive: Status: Acute Also discussed with the patient that her Pap smear was negative/HPV positive year ago, recommendation was to proceed with colposcopy since the patient cancel her follow-up appointment you to inactive insurance recommended schedule an appointment within a week for repeat co testing and colposcopy. All questions answered, the patient verbalized understanding Endometrial Biopsy Details: The patient was counseled regarding the indication and benefits of endometrial sampling to rule out endometrial pathology including not limited to endometrial hyperplasia or endometrial cancer and others; The alternatives (Either do nothing vs. hysteroscopy D&C) & the risks were discussed with the patient including but not limited: pain, uterine perforation, bleeding, infection, possible injury to bladder, bowel, ureter, possible need for blood transfusion with all its possible risks. The patient verbalized understanding all questions answered and signed consent. The patient was placed into the dorsal lithotomy position; a speculum was inserted in the vagina. Using aseptic technique for the procedure, the cervix was cleansed with Betadine. The anterior lip of the cervix was grasped with a single tooth tenaculum. The uterus was sounded to 7 cm with a 4 mm Pipelle was used. Tissues samples were obtained and placed in formalin, in a patient labeled container and sent to the pathology department. At the end of the procedure, there was minimal bleeding noted The patient tolerated the procedure well and was discharged in good condition with the following instructions: Nothing in the vagina until the bleeding stops. No sex until the bleeding stops, to call if any of the following occurs: fever (>100.4), flu-like symptoms, abdominal pain, heavy bleeding, four smelling vaginal discharge. The patient was instructed to schedule a Follow up appointment in 2 weeks to discuss pathology results of the biopsy and treatment options. This note was generated with a voice recognition program. Some errors may have been overlooked during the review of this note. Sometimes these errors may affect the content or meaning of a given sentence. [id number] Biopsy
[2025-02-11 05:33] LABS: Hematocrit 24.7 % (37.0-47.0); Hemoglobin 8.2 g/dl (12.0-16.0)
[2025-02-11 05:47] LABS: Magnesium 2.2 mg/dL (1.6-2.6)
--- NOTE | 2025-02-11 07:56 | PC.NURSE ---
Dr Suarez at bedside to consult on pt
--- NOTE | 2025-02-11 10:05 | PC.NURSE ---
RBC's transfusing per orders at this time; vss
--- NOTE | 2025-02-11 10:27 | PC.NURSE ---
No adverse reaction to RBC transfusion noted at this time
--- NOTE | 2025-02-11 11:05 | PC.NURSE ---
Pt's BP elevated to 180's/100's; pt states her PCP is watching her for HTN, but not currently on meds; HR and temperature WNL; pt tearful and anxious, stating she feels overwhelmed by current OB health issues; MD made aware/at bedside to eval; transfusion not stopped at this time as transfusion reaction not suspected
--- NOTE | 2025-02-11 11:08 | PHA.MEDREC ---
Pharmacy Consult ? Medication Reconciliation Pharmacy has completed the medication reconciliation. Spoke to patient to confirm med list. Per patient, she is supposed to be taking ferrous sulfate 325 mg daily but has not been compliant (she last took it last month).
== END 2025-02-11 13:24 | disposition home or self-care (01) ==
PROVIDERS: Physician Assistant; Physician Assistant Medical; Emergency Provider Emergency Medicine; PCP Internal Medicine
DX: N93.8 Other specified abnormal uterine and vaginal bleeding (principal); D50.9 Iron deficiency anemia, unspecified; I10 Essential (primary) hypertension; F41.9 Anxiety disorder, unspecified; Z80.0 Family history of malignant neoplasm of digestive organs; Z80.8 Family history of malignant neoplasm of other organs or systems
CPT/HCPCS: 36415; 36430; 58100; 80053; 81001; 83735; 84443; 84702; 85014; 85018; 85025; 86850; 86900; 86901; 86923; 88305; 93005; 96365; 96366; 96375; 99285; J2270; J2405; J3475; P9016

== ENCOUNTER → 2025-02-10 19:11 | Outpatient (BNV) | payer MEDICAID, SELFPAY | PROVIDERS: Emergency Provider Emergency Medicine; PCP Internal Medicine; Visit Provider Internal Medicine Cardiovascular Disease | DX: R00.0 Tachycardia, unspecified (principal) | CPT/HCPCS: 93010 ==

== ENCOUNTER → 2025-02-10 21:02 | Outpatient (BNV) | payer MEDICAID, SELFPAY | PROVIDERS: Emergency Provider Emergency Medicine; PCP Internal Medicine; Visit Provider Obstetrics & Gynecology | DX: N93.9 Abnormal uterine and vaginal bleeding, unspecified (principal); D25.9 Leiomyoma of uterus, unspecified; R87.810 Cervical high risk human papillomavirus (HPV) DNA test positive | CPT/HCPCS: 58100; 99283 ==

== ENCOUNTER 2025-02-12 08:05 | Outpatient (REF) | payer OTHER, SELFPAY ==
--- OUTSIDE RECORDS SUMMARY | 2025-02-12 08:09 | XMS_ITS | Clinical Summary ---
Author Organization [facility] Address [address] [facility] [address] [place] [address] Phone Care Team Providers Care Lumber Stacker Operator Name Role Phone Monica Agosto MD Primary [...] age to complete this topic Insurance [place] Care Teams Lumber Stacker Operator Relationship Specialty Start Date End Date Monica Agosto MD [address] [place] [address] PCP - General Internal Medicine 12/11/21
[2025-02-12 08:22] LABS: Hematocrit 31.4 % (37.0-47.0); Hemoglobin 10.4 g/dl (12.0-16.0); Mean Corpuscular HGB Conc 33.1 g/dl (31.0-35.0); Mean Corpuscular Hemoglobin 28.7 pg (27.0-33.0); Mean Corpuscular Volume 86.5 fL (80.0-98.0); NRBC Abs Auto 0.000 X10*3/uL (0.0-0.012); NRBC Pct Auto 0.0 /100WBC (0.0-0.2); Platelet Count 250 X10*3/uL (160-400); Red Blood Count 3.63 X10*6/uL (4.20-5.50); White Blood Count 6.7 X10*3/uL (4.8-10.8)
== END 2025-02-12 08:06 | disposition home or self-care (01) ==
LOC: HO.LAB 08:05
PROVIDERS: PCP Internal Medicine; Visit Provider Obstetrics & Gynecology
DX: N93.9 Abnormal uterine and vaginal bleeding, unspecified (principal)
CPT/HCPCS: 36415; 85027

== ENCOUNTER 2025-02-15 15:28 | Outpatient (REF) | payer OTHER, SELFPAY ==
--- NOTE | ~2025-02-15 | US_ITS ---
EXAMINATION: US PELVIS TRANSABDOMINAL AND TRANSVAGINAL HISTORY: N93.9 - Abnormal uterine and vaginal bleeding, unspecified COMPARISON: Comparison is made with the prior examination dated 01/24/2024. TECHNIQUE: Transabdominal and endovaginal real-time 2D horne-scale ultrasound was performed. FINDINGS: Uterus: The uterus is enlarged, measuring 11.3 x 9 0.5, 8.7 cm. Myometrium has a normal echotexture. Again seen is a central fibroid measuring 8.3 x 6.8 x 7.2 cm (previously 6.8 x 7.0 x 7.2 cm). Endometrium: The endometrial stripe measures 8 mm in thickness. Right ovary: The right ovary measures 2.7 x 1.5 x 2.0 cm. The right ovary is normal in size and echotexture. Left ovary: The left ovary measures 2.7 x 1.1 x 2.3 cm. The left ovary is normal in size and echotexture. Pelvic fluid: none. US/US pelvic and transvaginal IMPRESSION: Dominant central fibroid with interval enlargement since the prior study. Electronically signed by: Bello Lemos MD 02/15/2025 03:54 PM EDT
--- OUTSIDE RECORDS SUMMARY | 2025-02-15 17:05 | XMS_ITS | Clinical Summary ---
Author Organization [facility] Address [address] [facility] [address] [place] [address] Phone Care Team Providers Care Parachute Rigger Name Role Phone Monica Agosto MD Primary [...] age to complete this topic Insurance [place] Care Teams Parachute Rigger Relationship Specialty Start Date End Date Monica Agosto MD [address] [place] [address] PCP - General Internal Medicine 12/11/21
== END 2025-02-15 15:29 | disposition home or self-care (01) ==
LOC: HO.US 15:28
PROVIDERS: PCP Internal Medicine; Visit Provider Obstetrics & Gynecology
DX: N93.9 Abnormal uterine and vaginal bleeding, unspecified (principal); D25.9 Leiomyoma of uterus, unspecified
CPT/HCPCS: 76830; 76856

== ENCOUNTER → 2025-02-15 15:30 | Outpatient (BNV) | payer OTHER, SELFPAY | PROVIDERS: PCP Internal Medicine; Visit Provider Radiology Diagnostic Radiology | DX: D25.9 Leiomyoma of uterus, unspecified (principal) | CPT/HCPCS: 76830; 76856 ==

== ENCOUNTER 2025-02-26 08:33 | Outpatient (REF) | payer OTHER, SELFPAY | END 2025-02-26 08:34 | disposition home or self-care (01) | LOC: HO.LNP 08:33 | PROVIDERS: PCP Internal Medicine; Visit Provider Obstetrics & Gynecology | DX: R87.810 Cervical high risk human papillomavirus (HPV) DNA test positive (principal); D25.9 Leiomyoma of uterus, unspecified; N93.9 Abnormal uterine and vaginal bleeding, unspecified | CPT/HCPCS: 87626; 88175; 99212 ==

== ENCOUNTER 2025-02-26 08:33 | Outpatient (AMB) | payer OTHER, SELFPAY ==
--- NOTE | 2025-02-26 08:36 | A.OFFVIS_ITS ---
Intake Visit Reasons: Cotest/colpo/ U/S results After School Driver: After School Driver Present (Karen) Accompanied by: Self / Same As Patient Allergies No Known Allergies Allergy (Verified 02/10/25 19:12) HPI Comments Details: Presenting for ER follow-up. The patient presented to emergency room few weeks ago with heavy vaginal bleeding. The following workup was done in the emergency room: H&H initially was 9.4/29.6, H&H repeated dropped to 9.3/27.7 HCG less than 2 01/14 Last co testing was negative/HPV positive 02/14 Pelvic ultrasound done recently showed the following: The uterus is anteverted and measures 13.4 x 8.5 x 7.4 cm. 6.8 x 7.0 x 7.2 cm mass within the uterus is somewhat difficult to characterize due to bowel gas and positioning, but likely represents a fibroid. Endometrium is poorly visualized. Imaged segment of endometrium with possible thickness of 8 mm, however, accuracy of endometrial measurements is substantially limited due to the large fibroid. No significant free fluid. Right ovary measures 3.3 x 3.4 x 2.3 cm, volume 13.6 mL. Left ovary measures 2.9 x 2.0 x 1.7 cm, volume 4.3 mL. Visualization of bilateral ovaries limited The patient is states that her bleeding is beginning to subside EMB done emergency room pathology showed the following: H&H at 19:21 was 9.4/29.6 H&H repeated at 22:58 dropped to 9.3/27.7 The patient was transfused with 1 unit of packed RBC, repeat H&H on 02/12 was 10.4/31.4 HCG less than 2 Last co testing was negative/HPV positive, colpo biopsy scheduled but the patient canceled her follow-up appointment because her insurance was inactive 02/15 pelvic ultrasound Uterus: The uterus is enlarged, measuring 11.3 x 9 0.5, 8.7 cm. Myometrium has a normal echotexture. Again seen is a central fibroid measuring 8.3 x 6.8 x 7.2 cm (previously 6.8 x 7.0 x 7.2 cm). Endometrium: The endometrial stripe measures 8 mm in thickness. Right ovary: The right ovary measures 2.7 x 1.5 x 2.0 cm. The right ovary is normal in size and echotexture. Left ovary: The left ovary measures 2.7 x 1.1 x 2.3 cm. The left ovary is normal in size and echotexture. Pelvic fluid: none. The patient was prescribed Provera 10 mg her bleeding has completely resolved The patient was referred to [facility] minimally invasive refined syrup operator surgery [facility] Medical History Anemia Family History Maternal Aunt Ovarian cancer Maternal Grandmother Colon cancer Brother Hyperthyroidism Social History Household Members: Spouse and Children Housing: House Alcohol intake: current Alcohol type: wine and hard liquor Comment: on weekends Patient Tobacco Use Status: Former Tobacco user Tobacco use type: Cigarette e-Cigarette/Vaping Use: Currently Using Current occupational status: unemployed Sexual orientation: Straight/Heterosexual Gender identity: Female Female Reproductive History Menstrual Age of Menarche: 13 Review of Systems Const All systems reviewed & are unremarkable except as noted in HPI and below Physical Exam General: Yes no CVA tenderness External Female Exam: normal external appearance and normal appearance of the urethra Speculum Exam - Vagina: normal appearance of the vagina, normal palpation, no lesions and no masses Speculum Exam - Cervix: normal appearance of the cervix, normal palpation, no lesions, no masses and nontender Bimanual exam- vagina & uterus: normal bimanual exam, normal palpation, normal palpation, uterine shape normal, No Cervical tenderness present, non-tender and enlarged Bimanual Exam- Adnexa, other: normal adnexae Back/Spine/Pelvis Back: no CVA tenderness Assessment & Plan Assessment & Plan (1) Abnormal uterine bleeding (AUB): Comment: Anemia Code(s): N93.9 - Abnormal uterine and vaginal bleeding, unspecified Category: Medical Plan: Recommended the patient to the patient to continue Provera 10 mg p.o. q.d., iron sulfate 325 mg p.o. b.i.d., repeat CBC in 8 weeks, order placed. Instructions given the patient to call or go to the emergency in case bleeding recurs [facility] minimally invasive gynecologic surgery referral placed Instructed the patient to call our office back in case a referral appointment is not scheduled, missed or canceled so that we will assist on rescheduling another appointment, the patient verbalized understanding agreed with the plan. (2) Uterine myoma: Code(s): D25.9 - Leiomyoma of uterus, unspecified Category: Medical Plan: Discussed with the patient the findings on pelvic ultrasound & the risk of myosarcoma; in addition reviewed with the patient that malignancy and pre malignancy cannot be ruled out without hysterectomy for pathological evaluation ; furthermore, explained to the patient the limitation of pelvic ultrasound and endometrial biopsy in the setting. Discussed with the patient the typical symptoms that are caused by myomas including but not limited to pelvic pain, pressure symptoms, abnormal uterine bleeding. In addition discussed with the patient options of treatment for myomas including: Serial ultrasounds periodically to follow-up on the size of the myoma while targeting the treatment against fibroids related symptoms ( control pills, Mirena IUD, progesterone treatment, GnRH agonist/antagonist, uterine artery embolization or endometrial ablation) versus surgical treatment including hysterectomy and or myomectomy. All pros and cons, risks and benefits of all options were discussed with the patient. End the patient decided to proceed with a hysterectomy Discussed with the patient the different types of hysterectomies including, vaginal, laparoscopic assisted vaginal, robotic assisted laparoscopic,& abdominal with BSO. All pros, cons, r/b of each approach were discussed the patient including evidence that morbidity is less and recovery is shorter with minimally invasive approaches to hysterectomy. Discussed with the patient the lack of availability of the robot DaVinci robot and/or minimally invasive watch and clock repair clerk specialist at [facility]. Will refer to [facility] minimally invasive refined syrup operator surgery. Instructed the patient to call our office back in case a referral appointment is not scheduled, missed or canceled so that we will assist on rescheduling another appointment, the patient verbalized understanding agreed with the plan. (3) Cervical high risk HPV (human papillomavirus) test positive: Comment: Pap negative/HPV positive a year ago Code(s): R87.810 - Cervical high risk human papillomavirus (HPV) DNA test positive Category: Medical Plan: Co testing done will check the results and treat accordingly if abnormal cytology and or positive HPV will proceed with colposcopy. Orders: Orders HPV High risk Today R87.810 - Cervical high risk human papillomavirus (HPV) DNA test positive Complete Blood Count no Diff 8 Weeks N93.9 - Abnormal uterine and vaginal bleeding, unspecified Pap Smear Today R87.810 - Cervical high risk human papillomavirus (HPV) DNA test positive Coding Level of Care Code Est Pt Level 3 (29184) Diagnoses Abnormal uterine bleeding (AUB) N93.9 Uterine myoma D25.9 Cervical high risk HPV (human papillomavirus) test positive R87.810
--- OUTSIDE RECORDS SUMMARY | 2025-02-26 09:00 | XMS_ITS | Clinical Summary ---
Author Organization [facility] Address [address] [facility] [address] [place] [address] Phone Care Team Providers Care Broiler Supervisor Name Role Phone Monica Agosto MD Primary [...] age to complete this topic Insurance [place] Care Teams Broiler Supervisor Relationship Specialty Start Date End Date Monica Agosto MD [address] [place] [address] PCP - General Internal Medicine 12/11/21
== END 2025-02-26 09:24 | disposition home or self-care (01) ==
PROVIDERS: PCP Internal Medicine; Visit Provider Obstetrics & Gynecology
DX: N93.9 Abnormal uterine and vaginal bleeding, unspecified (principal); D25.9 Leiomyoma of uterus, unspecified; R87.810 Cervical high risk human papillomavirus (HPV) DNA test positive
CPT/HCPCS: 99213

== ENCOUNTER 2025-04-08 08:51 | Outpatient (REF) | payer OTHER, SELFPAY ==
[2025-04-08 09:11] LABS: MANUAL DIFF FLAG NO
[2025-04-08 10:00] LABS: Hematocrit 33.8 % (37.0-47.0); Hemoglobin 11.0 g/dl (12.0-16.0); Imm Gran Abs Auto 0.02 X10*3/uL (0.00-0.03); Imm Gran Pct Auto 0.2 % (0.0-0.4); Lymphocytes Absolute Auto 2.7 X10*3/uL (1.2-4.9); Mean Corpuscular HGB Conc 32.5 g/dl (31.0-35.0); Mean Corpuscular Hemoglobin 29.1 pg (27.0-33.0); Mean Corpuscular Volume 89.4 fL (80.0-98.0); NRBC Abs Auto 0.000 X10*3/uL (0.0-0.012); NRBC Pct Auto 0.0 /100WBC (0.0-0.2); Platelet Count 498 X10*3/uL (160-400); Red Blood Count 3.78 X10*6/uL (4.20-5.50); White Blood Count 9.3 X10*3/uL (4.8-10.8)
[2025-04-08 11:21] LABS: Alanine Aminotransferase 19 U/L (0-31); Albumin Level 4.0 g/dL (3.5-5.0); Alkaline Phosphatase 62 U/L (39-117); Anion Gap 13 (12-20); Aspartate Amino Transferase 21 U/L (5-31); Blood Urea Nitrogen 6 mg/dL (9-16); Calcium 8.9 mg/dL (8.4-10.2); Carbon Dioxide 23 mmol/L (22-29); Chloride 108 mmol/L (96-108); Cholesterol 191 mg/dL (<200); Estimated Glomerular Filt Rate > 60; HDL Cholesterol 33 mg/dL (>40); Potassium 3.8 mmol/L (3.3-5.1); Sodium 140 mmol/L (135-145); Total Protein 7.4 g/dL (6.5-8.0); Triglycerides 76 mg/dL (<150)
== END 2025-04-08 08:52 | disposition home or self-care (01) ==
LOC: HO.LAB 08:51
PROVIDERS: Visit Provider Internal Medicine
DX: Z00.01 Encounter for general adult medical examination with abnormal findings (principal); I10 Essential (primary) hypertension; N92.0 Excessive and frequent menstruation with regular cycle; D25.9 Leiomyoma of uterus, unspecified; D50.0 Iron deficiency anemia secondary to blood loss (chronic); E78.2 Mixed hyperlipidemia; Z72.0 Tobacco use
CPT/HCPCS: 36415; 80053; 80061; 85025